=== PATIENT | male | born 1995 | race Caucasian/White ===

== ENCOUNTER 2018-05-21 13:53 | Emergency (ER) | payer MEDICAID, OTHER ==
[2018-05-21 13:53] VITALS: BMI 19.9
[2018-05-21 15:44] VITALS: BP 141/77; PULSE 71; RESP 18; TEMP 98.1; O2SAT 98
--- NOTE | 2018-05-21 17:43 | ED PDOC ---
HPI: General Adult Time Seen by Provider: 05/21/18 17:35 Chief Complaint (Nursing): Abnormal Skin Integrity Chief Complaint (Provider): sore throat and abscess. Rash History Per: Patient History/Exam Limitations: no limitations Onset/Duration Of Symptoms: Days (last night) Current Symptoms Are (Timing): Still Present Additional Complaint(s): Hanna Spain is a 23 year old male, with no significant past medical history, who presents to the emergency department with multiples complaints but mainly complaining of an acute sore throat since last night. Additionally, patient reports a reoccurring abscess in gluteal region that recently opened up yesterday after being on antibiotics for x1 week. Patient also reports having a rash in his right forearm. Patient states he had a newly placed tattoo x3 days ago but doesn't believe its the cause since he's had tattoos before without any problems. He is currently using Vaseline and A+D ointment without any relief. He denies any fever, chills, chest pain, shortness of breath or other medical complaints. PMD: None provided. Past Medical History Reviewed: Historical Data, Nursing Documentation, Vital Signs Vital Signs: Last Vital Signs Temp 98.1 F 05/21/18 15:42 Pulse 71 05/21/18 15:42 Resp 18 05/21/18 15:42 BP 141/77 05/21/18 15:42 Pulse Ox 98 05/21/18 15:42 - Medical History PMH: No Chronic Diseases - Surgical History Surgical History: No Surg Hx - Family History Family History: States: Unknown Family Hx - Immunization History Hx Tetanus Toxoid Vaccination: Yes Hx Influenza Vaccination: Yes Hx Pneumococcal Vaccination: Yes - Home Medications Home Medications: Ambulatory Orders Medication Instructions Recorded Ibuprofen 1 tab PO Q6H PRN #15 tablet 09/27/15 Hydrocortisone 0.5% CREAM 0.5 gm TOP BID PRN #1 tube 05/21/18 [Cortizone 0.5% CREAM] predniSONE [predniSONE Tab] 2 tab PO DAILY #8 tab 05/21/18 - Allergies Allergies/Adverse Reactions: Allergies Allergy/AdvReac Type Severity Reaction Status Date / Time No Known Allergies Allergy Verified 05/21/18 15:46 Review of Systems ROS Statement: Except As Marked, All Systems Reviewed And Found Negative Constitutional: Negative for: Fever, Chills ENT: Positive for: Throat Pain Cardiovascular: Negative for: Chest Pain Respiratory: Negative for: Shortness of Breath Skin: Positive for: Rash (right forearm), Other (abscess in gluteal region) Physical Exam - Reviewed Nursing Documentation Reviewed: Yes Vital Signs Reviewed: Yes - Physical Exam Appears: Positive for: No Acute Distress Head Exam: Positive for: ATRAUMATIC, NORMAL INSPECTION, NORMOCEPHALIC Skin: Positive for: Normal Color, Warm, Dry, Rash (Small papular lesions noted with scaly skin and few scoriations. ) Eye Exam: Positive for: Normal appearance, EOMI, PERRL ENT: Positive for: Pharynx Is (non-erythematous), Other (uvula with mild edema noted). Negative for: Pharyngeal Erythema Neck: Positive for: Normal, Painless ROM, Supple Cardiovascular/Chest: Positive for: Regular Rate, Rhythm. Negative for: Murmur Respiratory: Positive for: Normal Breath Sounds. Negative for: Respiratory Distress Gastrointestinal/Abdominal: Positive for: Normal Exam, Soft. Negative for: Tenderness Back: Positive for: Other (1.5cm abscess in gluteal region with minimal induration. Non-fluctuant and not erythematous.) Extremity: Positive for: Normal ROM (upper and lower extremities). Negative for: Deformity, Swelling Neurologic/Psych: Positive for: Alert, Oriented. Negative for: Motor/Sensory Deficits - ECG O2 Sat by Pulse Oximetry: 98 (RA) Pulse Ox Interpretation: Normal - Progress ED Course And Treament: rapid strep: neg prednisone 60mg x dose Medical Decision Making Medical Decision Making: Time: 17:35 Initial Impression: Rash, abscess Initial Plan: --Prednisone 60mg PO --Rapid Strep Group A Antigen --Reevaluation Patient reports feeling better and states symptoms have improved. At this time patient requires no further treatment in the ED. Patient advised to follow up with general surgery for further evaluation of abscess. Patient instructed to place hydrocortisone cream along rash TID for x5 days. Return precautions provided. -------- Scribe Attestation: Documented by Samuel Mclean, acting as a scribe for Rayray Ramos PA-C. Provider Scribe Attestation: All medical record entries made by the Scribe were at my direction and personally dictated by me. I have reviewed the chart and agree that the record accurately reflects my personal performance of the history, physical exam, medical decision making, and the department course for this patient. I have also personally directed, reviewed, and agree with the discharge instructions and disposition. Disposition - Clinical Impression Clinical Impression: Abscess, Uvulitis, Rash and nonspecific skin eruption - Patient ED Disposition Is Patient to be Admitted: No - Disposition Referrals: Fab Tristan MD [Staff Provider] - Disposition: Routine/Home Disposition Time: 18:29 Condition: FAIR Prescriptions: Hydrocortisone 0.5% CREAM [Cortizone 0.5% CREAM] 0.5 gm TOP BID PRN #1 tube PRN Reason: Rash predniSONE [predniSONE Tab] 2 tab PO DAILY #8 tab Instructions: Skin Abscess, Skin Rash (DC), Viral Pharyngitis Forms: [facility] ED School/Work Excuse
== END 2018-05-21 18:39 | disposition home or self-care (01) ==
LOC: H.ER 13:53
DX: K12.2 Cellulitis and abscess of mouth (principal); R21 Rash and other nonspecific skin eruption